=== PATIENT | female | born 1960 | race Caucasian/White ===

== ENCOUNTER 2017-09-01 14:52 | Inpatient (IN) | payer OTHER ==
[~2017-09-01] VITALS: Ht 154.9 cm; Wt 73.5 kg
[2017-09-06] MEDS ORDERED: TOPROL XL25 MG PO (11:03)
== END 2017-09-14 10:02 | disposition home or self-care (01) | DRG 735 ==
LOC: EDBD 09-13 05:19 → OB/GYN 09-13 05:19 → O/R 09-13 05:19 → SURH 09-13 08:30 → OB/GYN 09-13 15:20
PROVIDERS: Obstetrics & Gynecology Gynecologic Oncology
PROC: 0UT94ZZ Resection of Uterus, Percutaneous Endoscopic Approach (ICD-10-PCS; 2017-09-13)
PROC: 0UT24ZZ Resection of Bilateral Ovaries, Percutaneous Endoscopic Approach (ICD-10-PCS; 2017-09-13)
PROC: 0UT74ZZ Resection of Bilateral Fallopian Tubes, Percutaneous Endoscopic Approach (ICD-10-PCS; 2017-09-13)
PROC: 07TC4ZZ Resection of Pelvis Lymphatic, Percutaneous Endoscopic Approach (ICD-10-PCS; principal; 2017-09-13 10:00)
DX: C54.1 Malignant neoplasm of endometrium (principal)